=== PATIENT | female | born 1990 | race Caucasian/White ===

== ENCOUNTER → 2019-09-10 | Outpatient (CLI) | payer OTHER ==
--- NOTE | 2019-09-10 08:24 | US ---
EXAMINATION TYPE: Transabdominal DATE OF EXAM: 09/10/2019 8:09 AM COMPARISON: NONE CLINICAL HISTORY: Z34.80. early ob, cramping EXAM PERFORMED: OBTA EXAM MEASUREMENTS: GESTATIONAL AGE / DATING Physician Established: ( 6 weeks/4 days) EDC: 05/01/2020 Dates by LMP: (6 weeks/4 days) EDC: 05/01/2020 Dates by First Scan: No previous this is first scan Dates by Current Scan for: (6 weeks/2 days) EDC: 05/03/2020 MATERNAL ANATOMY Uterus: 8.1 x 4.8 x 4.2cm Right Ovary: 2.5 x 2.7 x 2.9cm Left Ovary: 3.0 x 2.5 x 2.0cm Post CDS / Adnexa: wnl Presence of free fluid: no Presence of corpus luteal cyst: 2.7cm on the right Presence of subchorionic bleed: no GESTATION / SURVEY CRL: 4.7cm (6 weeks/2 days) MSD: wnl Yolk Sac (normal less than 6mm): 0.2cm Heart Rate: 118 bpm Rhythm: Normal IUP: Live IUP Date of LMP: 07/26/2019 IMPRESSION: Single live intrauterine with a sonographic age of 6 weeks and 4 days and estim ated date of delivery of 05/01/2020, concordant with menstrual age.
== END | disposition home or self-care (01) ==
LOC: RADUSWWP 07:42
PROVIDERS: ATTEND Obstetrics & Gynecology
DX: Z34.80 Encounter for supervision of other normal pregnancy, unspecified trimester (principal)
CPT/HCPCS: 76801

== ENCOUNTER → 2019-12-28 | Outpatient (CLI) | payer OTHER ==
--- NOTE | 2019-12-28 09:52 | US ---
EXAMINATION TYPE: US abdomen complete DATE OF EXAM: 12/28/2019 COMPARISON: US abdomen dated 10/06/2014. CLINICAL HISTORY: R10.11 RT upper quadrant pain. EXAM MEASUREMENTS: Liver Length: 12.1 cm Gallbladder Wall: 0.2 cm CBD: 0.2 cm Spleen: 10.4 cm Right Kidney: 10.5 x 4.2 x 4.5 cm Left Kidney: 11.5 x 4.8 x 4.7 cm patient obscuring midline structures. Pancreas: wnl Liver: wnl Gallbladder: wnl Evidence for sonographic Stewart's sign: no CBD: wnl Spleen: wnl Right Kidney: Inferior pole obscured by bowel gas Left Kidney: Inferior pole obscured by bowel gas Upper IVC: wnl Abd Aorta: distal obscured The liver is homogenous. The intrahepatic portion of the IVC and visualized proximal and mid abdomin al aorta are within normal limits. There is no evidence of shadowing mobile cholelithiasis. Common bile duct is unremarkable. The visualized portions of the pancreas are homogenous. The spleen is un remarkable. Kidneys are symmetric and free of hydronephrosis. No renal lesions are seen on images s aved. IMPRESSION: Suboptimal study without acute findings identified.
== END | disposition home or self-care (01) ==
LOC: RADUSWWP 08:35
PROVIDERS: ATTEND Obstetrics & Gynecology
DX: R10.11 Right upper quadrant pain (principal)
CPT/HCPCS: 76700

== ENCOUNTER → 2020-01-31 | Outpatient (CLI) | payer OTHER ==
[2020-01-31 14:04] LABS: HCT 41.6 % (34.0-46.0); HGB 13.4 gm/dL (11.4-16.0); MCH 30.1 pg (25.0-35.0); MCHC 32.2 g/dL (31.0-37.0); MCV 93.3 fL (80.0-100.0); Mean Platelet Volume 7.9; Platelet Count 203 k/uL (150-450); RBC 4.46 m/uL (3.80-5.40); WBC 16.6 k/uL (3.8-10.6)
== END | disposition home or self-care (01) ==
LOC: LABWHC1 12:38
PROVIDERS: ATTEND Obstetrics & Gynecology
DX: Z34.82 Encounter for supervision of other normal pregnancy, second trimester (principal)
CPT/HCPCS: 36415; 82950; 85027; 86850; 86870; 86880

== ENCOUNTER 2020-04-26 06:00 | Inpatient (IN) | payer OTHER ==
[2020-04-26] MEDS ORDERED: METHYLERGONOVINE 0.2 MG/ML 1 ML AMP IM PRN (06:54)
[2020-04-26] MEDS ORDERED: LIDOCAINE 0.5% (PF) 5 MG/ML (50 ML SDV) SQ PRN (06:54)
[2020-04-26] MEDS ORDERED: CARBOPROST TROMETHAMINE 250 MCG/ML 1 ML AMP IM PRN (06:54)
[2020-04-26] MEDS ORDERED: OXYTOCIN 10 UNIT/ML 1 ML VIAL IM PRN (06:54)
[2020-04-26] MEDS ORDERED: TERBUTALINE 1 MG/ML VIAL SQ PRN (06:54)
[2020-04-26] MEDS ORDERED: OXYTOCIN 30 UNITS/500 ML NS 30 UNIT in SALINE 1 500ML.BAG IV SCH (07:00)
[2020-04-26] MEDS: LACTATED RINGERS 1,000 ML IV SCH ×2 (07:11→10:43)
[2020-04-26 07:27] LABS: Basophils # (A) 0.1 k/uL (0-0.2); Basophils % (A) 0 %; Eosinophils # (A) 0.2 k/uL (0-0.7); Eosinophils % (A) 1 %; HCT 40.9 % (34.0-46.0); HGB 13.8 gm/dL (11.4-16.0); Lymphocytes # (A) 2.9 k/uL (1.0-4.8); Lymphocytes % (A) 13 %; MCH 29.9 pg (25.0-35.0); MCHC 33.7 g/dL (31.0-37.0); Mean Platelet Volume 8.5; Monocytes # (A) 1.1 k/uL (0-1.0); Monocytes % (A) 5 %; Neutrophils % (A) 79 %; Platelet Count 205 k/uL (150-450); RDW 13.5 % (11.5-15.5); WBC 21.6 k/uL (3.8-10.6)
[2020-04-26] MEDS: BUTORPHANOL 1 MG/ML 1 ML VIAL IV PRN ×2 (10:58→13:35)
[2020-04-26] MEDS ORDERED: ROPIVACAINE 100 MG, fentaNYL (PF) 200 MCG in SODIUM CHLORIDE 0.9% 76 ML EPIDURAL ONE (14:19)
[2020-04-26] MEDS ORDERED: OXYTOCIN 10 UNIT/ML 1 ML VIAL ONE (18:15)
[2020-04-26] MEDS ORDERED: MORPHINE SULFATE (PF) 0.3 MG/0.3 ML SYR ONE (18:15)
[2020-04-26] MEDS ORDERED: fentaNYL (PF) 50 MCG/ML 2 ML AMP ONE (18:15)
[2020-04-26] MEDS ORDERED: SODIUM CHLORIDE 0.9% 100 ML BAG ONE (18:15)
[2020-04-26] MEDS ORDERED: ceFAZolin 1,000 MG VIAL ONE (18:15)
[2020-04-26] MEDS ORDERED: KETOROLAC 15 MG/ML 1 ML VIAL ONE (18:15)
[2020-04-26] MEDS ORDERED: ONDANSETRON 4 MG/2 ML VIAL ONE (18:15)
[2020-04-26] MEDS ORDERED: ePHEDrine SULFATE/0.9% NACL/PF 50 MG/5 ML SYRINGE IV ONE (18:15)
[2020-04-26] MEDS ORDERED: ONDANSETRON 4 MG/2 ML VIAL IVP PRN (18:37)
[2020-04-26] MEDS ORDERED: MORPHINE SULFATE 2 MG/ML SYRINGE IVP PRN (18:37)
[2020-04-26] MEDS ORDERED: NALOXONE 0.4 MG/ML 1 ML VIAL IV PRN ×2 (18:37→19:02)
[2020-04-26] MEDS ORDERED: diphenhydrAMINE 50 MG/ML 1 ML VIAL IVP PRN ×3 (18:37→19:02)
[2020-04-26] MEDS ORDERED: KETOROLAC 15 MG/ML 1 ML VIAL IVP PRN (19:02)
[2020-04-26] MEDS ORDERED: ACETAMINOPHEN TAB 325 MG TAB PO PRN (19:02)
[2020-04-26] MEDS ORDERED: diphenhydrAMINE 50 MG CAP PO PRN (19:02)
[2020-04-26] MEDS ORDERED: diphenhydrAMINE 25 MG CAP PO PRN (19:02)
[2020-04-26] MEDS ORDERED: METOCLOPRAMIDE 5 MG/ML 2 ML VIAL IVP PRN (19:02)
--- NOTE | 2020-04-26 19:07 | P.HPOB ---
History of Present Illness H&P Date: 04/26/20 Chief Complaint: Intrauterine at term: Induction of labor Patient is a 30-year-old at 39 weeks gestation arise for induction of labor. She is transferred care to me from Dr. Ni. We have followed her closely through this department and while she did have multiple episodes of pain and a history of having placental abruptions early with 2 other delivery she had no significant bleeding or problems in this . We did do nonstress tests and biophysical profiles the latter part of the and she did see maternal medicine as well. She did receive RhoGAM for her O- blood type. Other labs include rubella is immune, hepatitis B surface antigen was negative groupie strep was negative HIV and RPR were both negative as well. She understands risks of induction including potential need for section. We'll augment with Pitocin and artificial rupture membranes was performed with clear fluid noted. heart tones revealed category 1 tracing at this time. Past Medical History Past Medical History: Asthma History of Any Multi-Drug Resistant Organisms: None Reported Past Surgical History: Appendectomy Past Anesthesia/Blood Transfusion Reactions: No Reported Reaction Past Psychological History: No Psychological Hx Reported Smoking Status: Current every day smoker Past Alcohol Use History: None Reported Past Drug Use History: None Reported - Past Family History Mother Family Medical History: No Reported History Medications and Allergies Home Medications Medication Instructions Recorded Confirmed Type Acetaminophen Tab [Tylenol Tab] 1,000 mg PO Q6HR PRN 04/26/20 04/26/20 History Pnv,Calcium 72/Iron/Folic Acid 1 each PO DAILY 04/26/20 04/26/20 History [ Plus Tablet] Allergies Allergy/AdvReac Type Severity Reaction Status Date / Time Penicillins AdvReac Rash/Hives Verified 04/26/20 06:53 Exam Osteopathic Statement: *. No significant issues noted on an osteopathic structural exam other than those noted in the History and Physical/Consult. Vital Signs Temp Pulse Resp BP 04/26/20 07:11 96.9 F L 83 16 116/85 Intake and Output 04/26/20 04/26/20 04/26/20 06:59 14:59 22:59 Other: Weight 82.1 kg 82.1 kg - OBG Physical Exam Breast: both: normal (no masses) Abdomen: bowel sounds normal, no diffuse tenderness, no bruit present, no guarding noted, no hepatomegaly, no splenomegaly, no mass Vulva: both: normal Vagina: normal moisture, no discharge Cervix: no lesion, no discharge Uterus: normal size, normal contour Adnexa: both: normal Anus/Rectum: normal perianal skin, no rectal mass, no hemorrhoids, heme negative Results Result Diagrams: 04/26/20 07:05 Abnormal Lab Results - Last 24 Hours (Table) 04/26/20 Range/Units 07:05 WBC 21.6 H (3.8-10.6) k/uL Neutrophils # 17.0 H (1.3-7.7) k/uL Monocytes # 1.1 H (0-1.0) k/uL
--- NOTE | 2020-04-26 19:07 | P.PN ---
Progress Note - Text Progress Note Date: 04/26/20 Patient progressed to complete and was pushing. She pushed for approximately half hour with minimal to no descent she had significant severe left sided uterine and groin pain and was unable to continue pushing. A section was ordered at her request due to the severe pain.
--- NOTE | 2020-04-26 19:12 | P.OP ---
Date of Procedure: 04/26/20 Preoperative Diagnosis: Intrauterine at term: Arrest of descent Postoperative Diagnosis: Same Procedure(s) Performed: Primary low transverse section Anesthesia: spinal Surgeon: Parish Bender [employer] Cleaning Machine Operator #1: Sydney Evans Estimated Blood Loss (ml): 500 IV fluids (ml): 1,200 Urine output (ml): 100 Pathology: none sent Condition: stable Disposition: floor Operative Findings: Preoperatively a lengthy discussion with the patient was held with specific risks related to trying to deliver a baby from this Lo/Ovral position at the baby was approximately 0 station at the time of section. She was aware of increased risk for bleeding and extensions into the cervix as well as bladder or bowel injuries. Following delivery of the baby scores were 9 and 9 at one and 5 minutes respectively and weight was 6 lbs. 6 oz. viable baby boy. Description of Procedure: Patient was taken to the operating suite where a spinal anesthetic was found be adequate. She was prepped and draped in normal sterile fashion and placed in the dorsal supine position with leftward tilt. Initially a Pfannenstiel skin incision was made and this incision was then carried through to underlying layer of the fascia with a second knife. Fascia was then nicked in the midline and this opening was extended laterally with Mahmood scissors. Superior and inferior aspect of this incision were then grasped tented up and bluntly and sharply dissected off the rectus muscles. Rectus muscles were then divided the midline and blunt dissection through the peritoneum was then done. This opening was then extended superiorly and inferiorly with good visualization of both bowel bladder. Bladder blade was then placed bladder flap identified and with Metzenbaum scissors and carried across face uterus with Metzenbaum scissors. Knife was then used to incise the uterus and this opening was fully developed with hemostat and then extended bluntly. We were able to bring the baby up out of the vagina and once that pressure was released baby's head and body were easily delivered. Mouth and nares were bulb suctioned and nursery personnel was present to assume care. Umbilical cord was then clamped and cut in usual fashion. Placenta was then delivered intact Pitocin was added to the IV the. Uterus was then exteriorized cleared of clots and debris and closed in 2 layers with 0 Vicryl suture. Once excellent hemostasis was felt to be obtained 3-0 Vicryl reapproximated the bladder flap. Blood and debris was then suctioned from the posterior cul-de-sac and uterus was reinserted into the abdomen. Peritoneal layer was then closed with 0 Vicryl suture. Fascial layers close with 0 Vicryl suture. One layer of 3-0 Vicryl was placed in deep subcuticular tissues to reapproximate skin and close space. Skin was then closed with 4-0 Vicryl subcuticular. Sponge, lap, needle counts were all correct 2. Patient was then taken to the recovery room in stable and satisfactory condition.
[2020-04-27] MEDS: FAMOTIDINE 20 MG/2 ML VIAL IV SCH ×2 (02:14→11:44)
[2020-04-27] MEDS: LACTATED RINGERS 1,000 ML IV SCH ×5 (02:14→23:35)
--- NOTE | 2020-04-27 07:33 | P.PNOBGPC ---
Subjective - Subjective Principal diagnosis: Postop day 1 Interval history: Overall Marysol is doing well. She is ambulating, voiding and she is tolerating her diet so far. We'll plan to advance the diet today. Vital signs are stable and afebrile. Heart regular, lungs clear, extremities without pain. Abdomen soft and her incision is clean dry and intact Objective - Vital Signs Latest vital signs: Vital Signs Temp Pulse Resp BP Pulse Ox 04/27/20 06:00 16 04/27/20 04:00 98.3 F 71 16 103/61 98 04/27/20 02:00 16 04/27/20 01:00 16 04/27/20 00:00 98.5 F 87 16 111/52 04/26/20 23:37 98 04/26/20 23:00 98.5 F 78 16 120/52 04/26/20 21:37 16 04/26/20 21:17 98.0 F 78 16 123/50 04/26/20 20:47 97.9 F 71 16 100/56 04/26/20 20:17 81 16 103/55 04/26/20 20:02 96.3 F L 69 16 111/60 04/26/20 20:00 16 04/26/20 19:47 96.9 F L 90 16 90/52 04/26/20 19:37 16 04/26/20 19:32 71 16 113/56 04/26/20 19:17 97.6 F 71 16 113/56 04/26/20 18:37 98.9 F 74 16 118/58 98 Intake and Output 04/26/20 04/27/20 04/27/20 22:59 06:59 14:59 Intake Total 250 Output Total 750 400 Balance -750 -150 Intake: Oral 250 Output: Urine 750 400 Uretheral (Ramirez) 400 - Exam Lungs: bilateral: normal Chest: Normal S1, Normal S2 Extremities: Present: normal Abdomen: Present: normal appearance, soft. Absent: distention, tenderness Incision: Present: normal, dry, intact Uterus: Present: normal, firm
[2020-04-27 07:43] LABS: Basophils % (A) 0 %; Eosinophils # (A) 0.1 k/uL (0-0.7); Eosinophils % (A) 0 %; HCT 34.8 % (34.0-46.0); HGB 11.5 gm/dL (11.4-16.0); Lymphocytes # (A) 3.4 k/uL (1.0-4.8); Lymphocytes % (A) 12 %; MCH 29.8 pg (25.0-35.0); MCV 90.5 fL (80.0-100.0); Mean Platelet Volume 8.6; Monocytes # (A) 1.1 k/uL (0-1.0); Monocytes % (A) 4 %; Neutrophils # (A) 22.8 k/uL (1.3-7.7); Neutrophils % (A) 82 %; Platelet Count 186 k/uL (150-450); RBC 3.84 m/uL (3.80-5.40); RDW 13.5 % (11.5-15.5); WBC 27.8 k/uL (3.8-10.6)
[2020-04-27] MEDS: SENNOSIDES-DOCUSATE SODIUM 1 EACH TAB PO SCH ×3 (08:04→19:57)
--- NOTE | 2020-04-27 08:15 | P.PN ---
Progress Note - Text Progress Note Date: 04/27/20 Postoperative day 1 status post section under spinal anesthesia, and i ntrathecal morphine given for postoperative analgesia, patient doing well, there is no anesthesia related complications, Patient had no headache, vital signs stable , Assessment and plan= postop day 1 status post , doing well there is no anesthesia related complication. note= patient was seen at 7 AM in the morning
[2020-04-27] MEDS ORDERED: Rhogam IMMUNE GLOBULIN 1,500 UNIT/1 ML IM ONE (11:43)
[2020-04-27] MEDS: HYDROcodone/APAP 7.5-325MG 1 EACH TAB PO PRN ×2 (12:41→19:57)
[2020-04-27] MEDS: IBUPROFEN 600 MG TAB PO PRN ×2 (15:48→22:50)
[2020-04-28] MEDS: HYDROcodone/APAP 7.5-325MG 1 EACH TAB PO PRN ×2 (03:51→12:59)
--- NOTE | 2020-04-28 07:38 | P.DS ---
Providers Date of admission: 04/26/20 06:34 Expected date of discharge: 04/28/20 Attending physician: Parish Bender Primary care physician: Stated None Hospital Course: Overall Marysol is doing well post op day 2. She is able to ambulate, she is voiding, and she is tolerating her diet. She also is passing flatus. Her vital signs are stable and afebrile. Her only complaint is that she does have some numbness in her right buttock which may simply be due to the spinal. Something will need to be reevaluated doing forward. She is requesting discharge home today. Prescriptions for pain reliever workforce the pharmacy and discharge instructions thoroughly reviewed. All the questions are answered for her prior to discharge. On physical exam vital signs are stable and afebrile. Heart regular, lungs clear, extremities without pain. Abdomen is soft uterus is firm and her incision is otherwise clean dry and intact. Assessment postop day 2. Plan discharged home follow up with me in 1 week. Patient Condition at Discharge: Good Plan - Discharge Summary New Discharge Prescriptions: New Ibuprofen [Motrin] 600 mg PO Q6HR PRN #30 tab PRN Reason: Pain HYDROcodone/APAP 5-325MG [Neligh 5-325] 1 tab PO Q4HR PRN #30 tab PRN Reason: Pain No Action Acetaminophen Tab [Tylenol Tab] 1,000 mg PO Q6HR PRN PRN Reason: Pain Pnv,Calcium 72/Iron/Folic Acid [ Plus Tablet] 1 each PO DAILY Discharge Medication List Acetaminophen Tab [Tylenol Tab] 1,000 mg PO Q6HR PRN 04/26/20 [History] Pnv,Calcium 72/Iron/Folic Acid [ Plus Tablet] 1 each PO DAILY 04/26/20 [History] HYDROcodone/APAP 5-325MG [Neligh 5-325] 1 tab PO Q4HR PRN #30 tab 04/28/20 [Rx] Ibuprofen [Motrin] 600 mg PO Q6HR PRN #30 tab 04/28/20 [Rx] Follow up Appointment(s)/Referral(s): Parish Bender DO [Doctor of Osteopathic Medicine] - 1 Week Activity/Diet/Wound Care/Special Instructions: No heavy lifting limited stairs and driving, and pelvic rest. If any high temperatures, heavy bleeding, or severe pain, Discharge Disposition: HOME SELF-CARE
[2020-04-28] MEDS: SENNOSIDES-DOCUSATE SODIUM 1 EACH TAB PO SCH (07:59)
[2020-04-28] MEDS: IBUPROFEN 600 MG TAB PO PRN (07:59)
[2020-04-28 08:56] VITALS: BP 111/69; PULSE 84; TEMP 98.2
[2020-04-28] MEDS: FAMOTIDINE 20 MG/2 ML VIAL IV SCH (11:39)
[2020-04-28 13:22] VITALS: RESP 16
== END 2020-04-28 13:30 | disposition home or self-care (01) | DRG 788 ==
LOC: 4FBP 06:34
PROVIDERS: ADMIT Obstetrics & Gynecology; ATTEND Obstetrics & Gynecology
PROC: 3E033VJ Introduction of Other Hormone into Peripheral Vein, Percutaneous Approach (ICD-10-PCS; principal; 2020-04-26 18:30)
PROC: 3E0R3BZ Introduction of Anesthetic Agent into Spinal Canal, Percutaneous Approach (ICD-10-PCS; principal; 2020-04-26 18:30)
PROC: 00HU33Z Insertion of Infusion Device into Spinal Canal, Percutaneous Approach (ICD-10-PCS; principal; 2020-04-26 18:30)
PROC: 10907ZC Drainage of Amniotic Fluid, Therapeutic from Products of Conception, Via Natural or Artificial Opening (ICD-10-PCS; principal; 2020-04-26 18:30)
PROC: 10D00Z1 Extraction of Products of Conception, Low, Open Approach (ICD-10-PCS; principal; 2020-04-26 18:30)
PROC: 3E0234Z Introduction of Serum, Toxoid and Vaccine into Muscle, Percutaneous Approach (ICD-10-PCS; 2020-04-27)
DX: O62.1 Secondary uterine inertia (principal); F17.200 Nicotine dependence, unspecified, uncomplicated; O99.334 Smoking (tobacco) complicating childbirth; O99.52 Diseases of the respiratory system complicating childbirth; J45.909 Unspecified asthma, uncomplicated; O26.893 Other specified pregnancy related conditions, third trimester; Z67.41 Type O blood, Rh negative; Z37.0 Single live birth; Z3A.39 39 weeks gestation of pregnancy; Z71.6 Tobacco abuse counseling; Z79.899 Other long term (current) drug therapy; Z90.49 Acquired absence of other specified parts of digestive tract; Z87.19 Personal history of other diseases of the digestive system; Z98.890 Other specified postprocedural states; Z88.0 Allergy status to penicillin
CPT/HCPCS: 85025; 85461; 86850; 86870; 86880; 86900; 86901